=== PATIENT | male | born 1995 | race Caucasian/White ===

== ENCOUNTER 2019-03-31 08:15 | Emergency (ER) | payer OTHER ==
[2019-03-31 08:26] VITALS: BP 121/57; PULSE 70; TEMP 98; BMI 29.9
--- NOTE | 2019-03-31 09:08 | PDOC ---
History of Present Illness - General Chief Complaint: Rectal Bleed Stated Complaint: ABD PAIN/RECTAL BLEEDING Time Seen by Provider: 03/31/19 08:39 History Source: Patient Exam Limitations: No Limitations Past History - Past Medical History Allergies/Adverse Reactions: Allergies Allergy/AdvReac Type Severity Reaction Status Date / Time No Known Allergies Allergy Verified 03/31/19 08:26 Home Medications: Ambulatory Orders Docusate Sodium [Colace] 100 mg PO BID #14 capsule 03/31/19 COPD: No GI Disorders: (constipation) - Psycho Social/Smoking Cessation Hx Smoking History: Never smoked Information on smoking cessation initiated: No Hx Alcohol Use: No Drug/Substance Use Hx: No *Physical Exam - Vital Signs Last Vital Signs Temp Pulse Resp BP Pulse Ox 98 F 70 19 121/57 L 99 03/31/19 08:24 03/31/19 08:24 03/31/19 08:24 03/31/19 08:24 03/31/19 08:24 - Physical Exam General Appearance: No: Apparent Distress Respiratory/Chest: positive: Lungs Clear, Normal Breath Sounds. negative: Respiratory Distress Cardiovascular: positive: Regular Rhythm, Regular Rate, S1, S2. negative: Murmur Gastrointestinal/Abdominal: positive: Normal Bowel Sounds, Soft. negative: Tender, Distended, Guarding, Rebound Rectal Exam: positive: other (unable to feel internal hemorrhoids; no bloody stool noted). negative: melena, hemorrhoids Neurologic: positive: Alert Medical Decision Making - Medical Decision Making 23 y/o M with no sig pmh presents with constipation from yesterday along with blood noted upon wiping while he was straining to use restroom yesterday. States he does not have a high fiber diet. Denies fever, sob, cp, abd pain, vomiting, diarrhea, black stools. Likely from constipation No external hemorrhoids noted May have internal hemorrhoids Will refer to GI D/W Dr. Bowman 03/31/19 09:03 Discharge - Discharge Information Problems reviewed: Yes Clinical Impression/Diagnosis: Constipation Qualifiers: Constipation type: unspecified constipation type Qualified Code(s): K59.00 - Constipation, unspecified Condition: Stable Disposition: HOME - Admission No - Additional Discharge Information Prescriptions: Docusate Sodium [Colace] 100 mg PO BID #14 capsule Prescription Drug Monitoring Program (I-STOP) results: I-STOP not reviewed - Follow up/Referral Referrals: Fatoumata Cao MD [Staff Physician] - 2 Days - Patient Discharge Instructions Patient Printed Discharge Instructions: DI for Constipation Additional Instructions: Thank you for choosing [facility]. It was a pleasure taking care of you. Be sure to eat more high fiber foods such as fruits, vegetables, whole grain products Drink at least 3L of water daily You were referred to GI for further evaluation Return to the Emergency Department if your symptoms worsen or persist or have other concerning symptoms. - Post Discharge Activity Work/Back to School Note: Back to School
== END 2019-03-31 09:15 | disposition home or self-care (01) ==
LOC: JER 08:15
DX: K59.00 Constipation, unspecified (principal)
CPT/HCPCS: 99281-25